=== PATIENT | female | born 2000 | race Two or more races ===

== ENCOUNTER 2024-03-28 06:29 | Outpatient (REF) | payer OTHER, SELFPAY ==
--- NOTE | ~2024-03-28 | US_ITS ---
EXAMINATION: US PELVIS CLINICAL INFORMATION: Right with irregular bleeding for one month COMPARISON: None available. TECHNIQUE: Ultrasound of the pelvis is performed using both transabdominal and transvaginal transducers along with Doppler. Transvaginal imaging is performed due to inadequate visualization transabdominally. FINDINGS: Uterus: The uterus is anteverted and measures 7.8 x 3.4 x 4.3 cm. The double wall endometrial thickness is 3 mm. The uterus is smooth in contour and has normal myometrial echogenicity. No visible fibroid. Adnexa: Both ovaries are visualized. There is normal color flow to the adnexa. There is no ovarian torsion. There is no pelvic ascites or fluid collection. Right ovary measures 2.7 x 2.9 x 2.2 cm. Left ovary measures 3.2 x 2.0 x 3.8 cm. US/US pelvic and transvaginal IMPRESSION: Normal pelvic ultrasound. Electronically signed by: Fede Lagunas MD 03/29/2024 05:43 PM EDT
== END 2024-03-28 06:30 | disposition home or self-care (01) ==
LOC: HO.UMASIMG 06:29
PROVIDERS: Visit Provider Nurse Practitioner Women's Health
DX: N92.6 Irregular menstruation, unspecified (principal)
CPT/HCPCS: 76830; 76856